=== PATIENT | male | born 1985 | race Caucasian/White ===

== ENCOUNTER → 2023-10-11 | Outpatient (CLI) | payer OTHER ==
[~2023-10-11] MED LIST: AUGMENTIN XR 101 TER PO; AUGMENTIN XR1000 M1 PO; CEPHALEXIN500 M1 PO; CLARITIN10 MG PO; [UNRECOGNIZED DRUG - OTHER]
== END | disposition home or self-care (01) ==
LOC: US 13:00
PROVIDERS: ATTEND Urology
DX: N50.3 Cyst of epididymis (principal); N20.0 Calculus of kidney; N28.1 Cyst of kidney, acquired; N43.3 Hydrocele, unspecified; Z96.0 Presence of urogenital implants